=== PATIENT | female | born 1985 | race Two or more races ===

== ENCOUNTER 2017-11-15 09:19 | Outpatient (CLI) | payer OTHER | END 2017-11-15 09:33 | disposition home or self-care (01) | LOC: LAB 09:19 | DX: O92.6 Galactorrhea (principal) ==

== ENCOUNTER 2017-11-15 09:55 | Outpatient (CLI) | payer OTHER | END 2017-11-15 14:58 | disposition home or self-care (01) | LOC: SONOGRAMA 09:55 | DX: N63.10 Unspecified lump in the right breast, unspecified quadrant (principal); N63.20 Unspecified lump in the left breast, unspecified quadrant; O92.6 Galactorrhea; G43.009 Migraine without aura, not intractable, without status migrainosus ==

== ENCOUNTER → 2017-12-19 08:36 | Outpatient (CLI) | payer OTHER | END | disposition home or self-care (01) | LOC: LAB 08:36 | DX: D50.9 Iron deficiency anemia, unspecified (principal); E83.51 Hypocalcemia; E78.2 Mixed hyperlipidemia; E03.9 Hypothyroidism, unspecified; N39.0 Urinary tract infection, site not specified; N92.6 Irregular menstruation, unspecified ==

== ENCOUNTER 2017-12-27 10:44 | Outpatient (CLI) | payer OTHER ==
[~2017-12-27 10:44] MED LIST: NORFLEX100MG PO
== END 2017-12-27 15:10 | disposition home or self-care (01) ==
LOC: SONOGRAMA 10:44
DX: N92.6 Irregular menstruation, unspecified (principal)

== ENCOUNTER 2018-01-11 10:58 | Outpatient (CLI) | payer OTHER | END 2018-01-11 11:06 | disposition home or self-care (01) | LOC: LAB 10:58 | DX: N91.2 Amenorrhea, unspecified (principal); N83.209 Unspecified ovarian cyst, unspecified side ==

== ENCOUNTER 2019-03-26 08:33 | Outpatient (CLI) | payer OTHER | END 2019-03-26 08:52 | disposition home or self-care (01) | LOC: LAB 08:33 | DX: E66.8 Other obesity (principal); Z13.89 Encounter for screening for other disorder; Z13.220 Encounter for screening for lipoid disorders; Z11.3 Encounter for screening for infections with a predominantly sexual mode of transmission; N94.89 Other specified conditions associated with female genital organs and menstrual cycle; M54.89 Other dorsalgia ==

== ENCOUNTER 2019-04-06 11:24 | Outpatient (CLI) | payer OTHER | END 2019-04-06 12:49 | disposition home or self-care (01) | LOC: MAMO-SONO 11:24 | DX: E66.8 Other obesity (principal); N64.89 Other specified disorders of breast; Z12.31 Encounter for screening mammogram for malignant neoplasm of breast; Z12.39 Encounter for other screening for malignant neoplasm of breast; D25.9 Leiomyoma of uterus, unspecified ==

== ENCOUNTER 2024-03-30 10:18 | Outpatient (CLI) | payer OTHER | END 2024-03-30 10:35 | disposition home or self-care (01) | LOC: MAMO-SONO 10:18 | PROVIDERS: ATTEND Specialist | DX: N63.0 Unspecified lump in unspecified breast (principal); Z12.31 Encounter for screening mammogram for malignant neoplasm of breast; R10.2 Pelvic and perineal pain ==